=== PATIENT | female | born 1990 | race Caucasian/White ===

== ENCOUNTER 2020-06-30 09:12 | Emergency (ER) | payer OTHER, SELFPAY ==
[2020-06-30 09:28] VITALS: BP 120/81; PULSE 89; RESP 18; TEMP 36.8; O2SAT 99
--- NOTE | 2020-06-30 10:03 | ED.URI ---
HPI - URI/Sore Throat General Chief Complaint: Upper Respiratory Infection Stated Complaint: nasal congestion and sore throat Time Seen by Provider: 06/30/20 09:52 Source: patient and RN notes reviewed Mode of arrival: ambulatory Limitations: no limitations History of Present Illness HPI Narrative: Patient presents today complaining of nasal congestion, frontal headache, sore throat, rhinorrhea since yesterday. States symptoms are improved this morning. Currently rates her pain 4/10. Denies fever, ear pain, shortness of breath. Reports occasional cough due to postnasal drip. No known exposure to COVID-19. She has been taking Mucinex, Tylenol, DayQuil with some mild relief. She has also been using salt water gargles for her sore throat, which did help. MD elicited complaint: sore throat Related Data Home Medications Medication Instructions Recorded Confirmed citalopram 10 mg PO DAILY 06/30/20 06/30/20 Allergies Allergy/AdvReac Type Severity Reaction Status Date / Time No Known Allergies Allergy Verified 06/30/20 09:36 Review of Systems Review of Systems: Narrative: CONSTITUTIONAL: Denies body aches, fever, chills, or sweats. EYES: Denies visual changes, redness, or discharge. ENT: Denies otalgia.+Congestion, rhinorrhea, sore throat, postnasal drip CARDIOVASCULAR: Denies chest pain, palpitations, or edema. RESPIRATORY: Denies cough or dyspnea. GASTROINTESTINAL: Denies abdominal pain, nausea, vomiting, or diarrhea. GENITOURINARY: Denies dysuria or hematuria. SKIN: Denies rash, itching, or wounds. MUSCULOSKELETAL: Denies back pain, joint pain, or myalgia. NEUROLOGIC: Denies numbness, tingling, or weakness. +Frontal headache PSYCH: Denies depression or anxiety. [facility] Past Medical History Medical History (Updated 06/30/20 @ 10:08 by Michelle Anderson, MILIEU TECHNICIAN, ) Anxiety Depression Exam Narrative: Exam Narrative: GENERAL: Mildly ill-appearing, well-nourished, and in no acute distress. HEAD: Normocephalic, atraumatic. EYES: EOMI. No redness or drainage. Conjunctivae normal. ENT: Mucous membranes pink and moist. Nares Congested with rhinorrhea. TMs normal bilaterally. Throat normal. Uvula midline. NECK: Normal AROM. Supple. No lymphadenopathy. CHEST: No respiratory distress. Clear to auscultation. HEART: Regular rate and rhythm. No murmur appreciated. Normal peripheral pulses. EXTREMITIES: Normal range of motion. No edema. SKIN: Warm, dry, no rash. Capillary refill normal. Normal skin turgor. NEURO: No focal deficits. Alert and oriented x3. Gait steady. PSYCH: Normal affect. No signs of depression or anxiety. Course Course Emergency Course: Due to recent exposure and symptoms, patient may have a possible COVID-19 infection. Signs and symptoms discussed with patient. Patient educated to self-isolate in a room in his/her home away from others they live with. Use mask if available. Patient was advised not to leave house for any reason ? Self-treatment discussed including Tylenol for fever, pain, or myalgia, and cough cold medications for symptoms. Patient to check temperature daily and monitor for symptoms of respiratory distress. Patient should check in daily with primary care office/system via phone/virtual platform ? Nature of the disease to cause severe respiratory distress discussed with the patient. If emergent care is needed, instructed to notify EMS or primary care office/system that he/she may have COVID-19 to allow for proper preparation of PPE and isolation measures Vital Signs Vital signs: Vital Signs Temperature 98.2 F 06/30/20 09:28 Pulse Rate 89 06/30/20 09:28 Respiratory Rate 18 06/30/20 09:28 Blood Pressure 120/81 06/30/20 09:28 Pulse Oximetry 99 06/30/20 09:28 Temperature 98.2 F 06/30/20 09:28 Pulse Rate 89 06/30/20 09:28 Respiratory Rate 18 06/30/20 09:28 Blood Pressure 120/81 06/30/20 09:28 Pulse Oximetry 99 06/30/20 09:28 Review
== END 2020-06-30 10:13 | disposition home or self-care (01) ==
PROVIDERS: Emergency Provider Nurse Practitioner; PCP Nurse Practitioner Adult Health
DX: J06.9 Acute upper respiratory infection, unspecified (principal); Z20.828 Contact with and (suspected) exposure to other viral communicable diseases; F41.9 Anxiety disorder, unspecified; F32.9 Major depressive disorder, single episode, unspecified
CPT/HCPCS: 87081; 87880; 99213; G0463

== ENCOUNTER 2020-06-30 10:14 | Outpatient (NON) | payer OTHER, SELFPAY ==
[2020-06-30 23:03] LABS: SARS-CoV-2 RNA PCR Negative
== END 2020-06-30 10:15 ==
LOC: ANHCOVIDDT 10:16
PROVIDERS: PCP Nurse Practitioner Adult Health; Visit Provider Nurse Practitioner
DX: Z20.828 Contact with and (suspected) exposure to other viral communicable diseases (principal); J06.9 Acute upper respiratory infection, unspecified
CPT/HCPCS: 87635; C9803; U0003

== ENCOUNTER 2020-08-24 08:39 | Emergency (ER) | payer OTHER, SELFPAY ==
[2020-08-24 08:47] VITALS: BP 123/76; PULSE 93; RESP 16; TEMP 36.6; O2SAT 100
--- NOTE | 2020-08-24 08:49 | ED.GENADULT ---
HPI - General Adult General Chief complaint: Skin/Abscess/Foreign Body Stated complaint: Bug Bite Time Seen by Provider: 08/24/20 08:50 Source: patient Mode of arrival: ambulatory Limitations: no limitations History of Present Illness HPI narrative: 29-year-old female patient presents to the [facility] with complaints of a rash to bilateral upper arms back area. Patient states that the areas she first noticed yesterday and states they are more itchy when sleeping at night. Patient states that her recently traveled and stated no tell room and came home with a similar rash that is also itching. Patient denies any fevers, body aches or chills. Denies any pets, new detergents, lotions or soaps. Denies any chest pain or shortness of breath. Related Data Home Medications Medication Instructions Recorded Confirmed escitalopram oxalate 10 mg PO DAILY 08/24/20 08/24/20 phentermine 37.5 mg PO DAILY 08/24/20 08/24/20 Allergies Allergy/AdvReac Type Severity Reaction Status Date / Time No Known Allergies Allergy Verified 08/24/20 09:02 Review of Systems Review of Systems: Narrative: CONSTITUTIONAL: Denies fever, chills, or sweats. EYES: Denies visual changes, redness, or discharge. ENT: Denies rhinorrhea, congestion, sore throat, or otalgia. CARDIOVASCULAR: Denies chest pain, palpitations, or edema. RESPIRATORY: Denies cough or dyspnea. GASTROINTESTINAL: Denies abdominal pain, nausea, vomiting, or diarrhea. GENITOURINARY: Denies dysuria or hematuria. SKIN: Positive for rash with itching to bilateral upper arms and back MUSCULOSKELETAL: Denies back pain, joint pain, or myalgia. NEUROLOGIC: Denies headache, numbness, or weakness. PSYCHIATRIC: Denies anxiety or depression. [facility] Past Medical History Medical History Anxiety Depression Comments At the time of my signature I agree with nursing past medical history, surgical, social, and family history. There is no relevant family history pertinent to the presenting complaint. Exam Narrative: Exam Narrative: GENERAL: Well-appearing, well-nourished, and in no acute distress. HEAD: Normocephalic, atraumatic. EYES: PERRLA and EOMI. ENT: Nares clear, no rhinorrhea or epistaxis. Mucous membranes moist. NECK: Supple. No lymphadenopathy CHEST: Clear to auscultation. No respiratory distress. HEART: Regular rate and rhythm. No murmur heard. Normal peripheral pulses. ABDOMEN: Soft, nontender, nondistended, normal active bowel sounds. EXTREMITIES: Normal range of motion. No edema. SKIN: Warm, dry, patient has small red papules noted to various spots on the bilateral upper arms. Some of the papules have little bit of white pimple-like center other wounds have a scabbed over center. There is itching present. The rash also extends to the back as well as the lower back. This does imitate pattern on which patient states she mostly sleeps either on her back or on her left shoulder. NEURO: No focal deficits. Alert and oriented x3. Course Vital Signs Vital signs: Vital Signs Temperature 36.6 C 08/24/20 08:47 Pulse Rate 93 08/24/20 08:47 Respiratory Rate 16 08/24/20 08:47 Blood Pressure 123/76 08/24/20 08:47 Pulse Oximetry 100 08/24/20 08:47 Temperature 36.6 C 08/24/20 08:47 Pulse Rate 93 08/24/20 08:47 Respiratory Rate 16 08/24/20 08:47 Blood Pressure 123/76 08/24/20 08:47 Pulse Oximetry 100 08/24/20 08:47 Vital signs reviewed Medical Decision Making Differential Diagnosis Differential Diagnosis: Differential diagnosis: Contact dermatitis, poison gerard, poison sumac, psoriasis, eczema, allergic reaction, drug reaction, scabies, tinea syphilis, lung disease, viral exanthema, pityriasis, erythema multiforme. Abscess, cellulitis, hidradenitis, laceration, puncture wound. Discussed with patient that given the rash, especially since her has it as well, could possibly be some type of s
== END 2020-08-24 09:10 | disposition home or self-care (01) ==
PROVIDERS: Emergency Provider Nurse Practitioner Family; PCP Nurse Practitioner Adult Health
DX: S40.862A Insect bite (nonvenomous) of left upper arm, initial encounter (principal); S40.861A Insect bite (nonvenomous) of right upper arm, initial encounter; S20.469A Insect bite (nonvenomous) of unspecified back wall of thorax, initial encounter; S30.860A Insect bite (nonvenomous) of lower back and pelvis, initial encounter; W57.XXXA Bitten or stung by nonvenomous insect and other nonvenomous arthropods, initial encounter; F41.9 Anxiety disorder, unspecified; F32.9 Major depressive disorder, single episode, unspecified
CPT/HCPCS: 99213; G0463

== ENCOUNTER 2021-03-09 11:22 | Emergency (ER) | payer BC, SELFPAY ==
[2021-03-09 11:31] VITALS: BP 109/70; PULSE 57; RESP 18; TEMP 37.6; O2SAT 100
--- NOTE | 2021-03-09 11:49 | ED.FEMALEGU ---
HPI - Female Genitourinary General Chief complaint: Abdominal Pain Stated complaint: ride side lower pain Time Seen by Provider: 03/09/21 11:49 Source: patient (Patient presents with right lower quadrant pain had intermittent intervals) History of Present Illness HPI Narrative: Patient presents with right lower quadrant pain that has been going on for the past 2 to 3 days. Patient denies any fever no nausea no vomiting. Patient denies any urinary symptoms. Patient states the pain comes at random. Patient has a history of ovarian cysts and wonders if that could be her problem at this time Related Data Home Medications Medication Instructions Recorded Confirmed fluoxetine 20 mg PO DAILY 03/09/21 03/09/21 Allergies Allergy/AdvReac Type Severity Reaction Status Date / Time No Known Allergies Allergy Verified 03/09/21 11:57 Review of Systems Review of Systems: CONSTITUTIONAL: Denies fever, chills, or sweats. EYES: Denies visual changes, redness, or discharge. ENT: Denies rhinorrhea, congestion, sore throat, or otalgia. CARDIOVASCULAR: Denies chest pain, palpitations, or edema. RESPIRATORY: Denies cough or dyspnea. GASTROINTESTINAL: Denies abdominal pain, nausea, vomiting, or diarrhea. GENITOURINARY: Denies dysuria or hematuria. SKIN: Denies rash or itching. MUSCULOSKELETAL: Denies back pain, joint pain, or myalgia. NEUROLOGIC: Denies headache, numbness, or weakness. PSYCHIATRIC: Denies anxiety or depression. [facility] Past Medical History Medical History Anxiety Depression Comments At time of signature, agree with nursing past medical, surgical, social and family history. There is no relevant family history pertinent to the presenting complaint Exam Narrative: GENERAL: Well-appearing, well-nourished, and in no acute distress. HEAD: Normocephalic, atraumatic. EYES: PERRLA and EOMI. ENT: Nares clear, no rhinorrhea or epistaxis. Mucous membranes moist. NECK: Supple. CHEST: Clear to auscultation. No respiratory distress. HEART: Regular rate and rhythm. No murmur heard. Normal peripheral pulses. ABDOMEN: Soft, nontender, nondistended, normal active bowel sounds. EXTREMITIES: Normal range of motion. No edema. SKIN: Warm, dry, no rash. NEURO: No focal deficits. Alert and oriented x3. [place] Coma Scale Eye Opening: Spontaneous 4 [place] Coma Scale Motor: Obeys Commands 6 [place] Coma Scale Verbal: Oriented 5 [place] Coma Scale Total 15 Course Vital Signs Vital signs: Vital Signs Temperature 37.6 C H 03/09/21 11:31 Pulse Rate 57 L 03/09/21 11:31 Respiratory Rate 18 03/09/21 11:31 Blood Pressure 109/70 03/09/21 11:31 Pulse Oximetry 100 03/09/21 11:31 Temperature 37.6 C H 03/09/21 11:31 Pulse Rate 57 L 03/09/21 11:31 Respiratory Rate 18 03/09/21 11:31 Blood Pressure 109/70 03/09/21 11:31 Pulse Oximetry 100 03/09/21 11:31 Discussed transfer to emergency room for further evaluation treatment of right lower quadrant pain. Patient declines transfer at this time states she will go home and if her symptoms return or worsen she will go to ER immediately further evaluation treatment. Discussed red flags and when to go to ER. Critical dx considered and discussed with pt. Educated patient on red flag s/s and to go to ED if s/s occur. Discussed with pt when to return to [facility] or primary care provider. Pt gave verbal undertstanding, all questions were answered, and pt was agreeable to plan MDM - Female Genitourinary Differential Diagnosis Differential diagnosis: Likely urinary tract infection, bacterial vaginosis, trichomoniasis, ovarian cyst, cystitis and dysmenorrhea Medical Records Attestation: I reviewed the patient's medical records. Lab Data Attestation: I reviewed the patient's lab results. Labs: Urine Glucose Negative Reference Range: Negative Urine B
== END 2021-03-09 12:15 | disposition home or self-care (01) ==
PROVIDERS: Emergency Provider Nurse Practitioner Family; PCP Nurse Practitioner Adult Health
DX: R10.31 Right lower quadrant pain (principal); F41.9 Anxiety disorder, unspecified; F32.9 Major depressive disorder, single episode, unspecified
CPT/HCPCS: 81003; 99212; G0463

== ENCOUNTER 2021-03-13 11:04 | Emergency (ER) | payer BC, SELFPAY ==
--- NOTE | ~2021-03-13 | CT_ITS ---
EXAMINATION: CT abdomen pelvis w con INDICATION: Right lower quadrant pain TECHNIQUE: Computed tomographic images of the abdomen and pelvis were obtained after the administrati on of 100 cc of Omnipaque 350 intravenous contrast. The dose-length product (DLP) was 244.27 mGy-cm. Automated exposure control and iterative reconstruction technique were employed. COMPARISON: None available FINDINGS: Minimal dependent atelectasis is present in the lung bases. The heart size is normal. The l iver, spleen, pancreas, gallbladder, and adrenal glands are normal. The kidneys are unremarkable. No pathologically enlarged abdominal or pelvic lymph nodes are identified. The appendix is normal. There is a 6.2 cm cyst of the left ovary. There is a possible corpus luteum of the left ovary. A small pavel unt of free fluid is present in the pelvis. There is no free intraperitoneal gas or evidence of bowel obstruction. IMPRESSION: 1. No CT correlate for the patient's symptoms. 2. Cystic lesion of the left adnexa. Further evaluation with pelvic ultrasound is recommended. Reviewed, dictated and finalized at location B.
[2021-03-13 11:19] VITALS: BP 124/67; PULSE 72; RESP 18; TEMP 36.6; O2SAT 100
[2021-03-13 11:40] LABS: Basophils Percent Auto 0.3 % (0.2-1.2); Eosinophils Absolute Auto 0.1 K/mm3 (0-0.3); Eosinophils Percent Auto 1.3 % (0-4.4); Hematocrit 37.1 % (37.0-47.0); Immature Granulocyte Absolute 0.02 K/mm3 (0.00-0.031); Immature Granulocyte Percent A 0.2 % (0-0.5); Lymphocytes Absolute Auto 1.95 K/mm3 (0.9-3.2); Lymphocytes Percent Auto 22.2 % (18.3-44.2); Mean Corpuscular HGB Conc 32.3 g/dl (32-36); Mean Corpuscular Hemoglobin 27.5 pg (26-34); Mean Corpuscular Volume 84.9 fl (80-100); Mean Platelet Volume 9.7 fl (7.4-10.4); Monocytes Absolute Auto 0.5 K/mm3 (0.1-0.6); Monocytes Percent Auto 5.9 % (2.6-8.5); Neutrophils Absolute Auto 6.2 K/mm3 (1.3-6.7); Neutrophils Percent Auto 70.1 % (45.5-73.1); Platelet Count Result 234 k/mm3 (150-375); Red Blood Count 4.37 M/mm3 (4.2-5.4); Red Cell Distribution Width 13.6 % (11.5-14.5); White Blood Count 8.8 K/mm3 (4.5-10.0)
[2021-03-13 11:48] LABS: Alanine Aminotransferase 15 U/L (4-35); Albumin Level 4.4 g/dL (3.5-5.1); Alkaline Phosphatase 49 U/L (38-126); Anion Gap 8 mmol/L (8-16); Aspartate Amino Transferase 23 U/L (14-36); Bilirubin,Total 0.3 mg/dL (0.2-1.3); Blood Urea Nitrogen 14 mg/dL (7-17); Calcium 9.3 mg/dL (8.4-10.2); Carbon Dioxide 23 mmol/L (22-30); Chloride 108 mmol/L (98-107); Estimated CRCL calculation 80 ml/min; Estimated Glomerular Filt Rate > 60; Glucose 92 mg/dL (65-110); Lipase 97 U/L (23-300); Potassium 3.8 mmol/L (3.4-5.0); Sodium 139 mmol/L (137-145)
[2021-03-13 12:02] LABS: Add Urine Microscopic? NO; Appearance Urine Clear (Clear); Bilirubin Urine Negative (Negative); Blood Urine Negative (Negative); Color Urine Yellow (Yellow); Glucose Urine UA Negative (Negative); Ketones Urine Negative (Negative); Leukocyte Esterase Ur Negative LEU/UL (Negative); Nitrate Urine Negative (Negative); Protein Urine Negative (Negative); Specific Grav Ur 1.024 (1.001-1.035); Urobilinogen Urine Negative mg/dL (<2.0)
[2021-03-13 12:23] VITALS: BP 113/71; PULSE 67; RESP 16; O2SAT 100
--- NOTE | 2021-03-13 13:56 | ED.ABDPAIN ---
HPI - Abdominal Pain General Chief Complaint: Abdominal Pain Stated Complaint: abd pain Time Seen by Provider: 03/13/21 12:02 Source: patient Mode of arrival: ambulatory Limitations: no limitations History of Present Illness HPI narrative: 30-year-old with no major medical problems here with complaints of right lower abdominal pain for approximately 1 week. Patient states that she has been to urgent care approximately 5 or 6 days ago had a urine analysis and was told normal however they could not do any further work-up and was told to go to the ER. Patient states that he has been having constant pain for past 5 days she denies any fever or chills. No history of nausea or vomiting. Denies any bladder or bowel problems. MD elicited complaint: abdominal pain Pertinent past history: none Pain Consistency: constant Location: RLQ Quality: aching Migration to: no migration Exacerbating factors: nothing Relieving factors: nothing Related Data Hx Last Menstrual Period: 2 weeks ago Home Medications Medication Instructions Recorded Confirmed fluoxetine 20 mg PO DAILY 03/09/21 03/09/21 Allergies Allergy/AdvReac Type Severity Reaction Status Date / Time No Known Allergies Allergy Verified 03/13/21 12:23 Review of Systems Review of Systems: All systems reviewed & are unremarkable except as noted in HPI and below Constitutional: Constitutional: Reports no additional constitutional complaints Eyes: Eyes: Reports no additional eye complaints Cardiovascular: Cardiovascular: Reports no additional cardiovascular complaints Respiratory: Respiratory: Reports no additional respiratory complaints Gastrointestinal: Gastrointestinal: Reports as per HPI Musculoskeletal: Musculoskeletal: Reports no additional musculoskeletal complaints Integumentary/Breasts: Skin/Breast: Reports system reviewed and no additional complaints, except as docu Neurologic: Reports system reviewed and no additional complaints, except as documented Endocrine: Endocrine: Reports no additional endocrine complaints [facility] Past Medical History Medical History Anxiety Depression Exam Narrative: GENERAL: Well-appearing, well-nourished, and in no acute distress. HEAD: Normocephalic, atraumatic. EYES: PERRLA and EOMI.. NECK: Supple. CHEST: Clear to auscultation. No respiratory distress. HEART: Regular rate and rhythm. No murmur heard. Normal peripheral pulses. ABDOMEN: Soft, mild tenderness in the rlq, nondistended, normal active bowel sounds. EXTREMITIES: Normal range of motion. No edema. SKIN: Warm, dry, no rash. NEURO: No focal deficits. Alert and oriented x3. PSYCH: Normal mood and affect. Course Course Emergency Course: Patient is seem to be quite comfortable not much in pain. I did discuss her about her lab work, CT findings. Cause of her pain is unknown. Advised her to take ibuprofen for pain. If continues to have pain, follow-up with primary doctor. Vital Signs Vital signs: Vital Signs Temperature 36.6 C 03/13/21 11:19 Pulse Rate 72 03/13/21 11:19 Respiratory Rate 18 03/13/21 11:19 Blood Pressure 124/67 03/13/21 11:19 Pulse Oximetry 100 03/13/21 11:19 Temperature 36.6 C 03/13/21 11:19 Pulse Rate 67 03/13/21 12:23 Respiratory Rate 16 03/13/21 12:23 Blood Pressure 113/71 03/13/21 12:23 Pulse Oximetry 100 03/13/21 12:23 MDM - Abdominal Pain Lab Data Result diagrams: 03/13/21 11:28 03/13/21 11:28 Labs: Lab Results 03/13/21 03/13/21 03/13/21 Range/Units 11:28 11:28 11:38 WBC 8.8 (4.5-10.0) K/mm3 RBC 4.37 (4.2-5.4) M/mm3 Hgb 12.0 (12.0-15.0) g/dL Hct 37.1 (37.0-47.0) % MCV 84.9 (80-100) fl MCH 27.5 (26-34) pg MCHC 32.3 (32-36) g/dl RDW 13.6 (11.5-14.5) % Plt Count 234 (150-375) k/mm3 MPV 9.7 (7.4-10.4) fl Immature Gran % (Auto) 0.2 (0-0.5) % Ne
[2021-03-13 14:20] VITALS: BP 102/58; PULSE 66; RESP 18; O2SAT 100
== END 2021-03-13 14:25 | disposition home or self-care (01) ==
PROVIDERS: Emergency Medicine; Emergency Provider Family Medicine; PCP Nurse Practitioner Adult Health
DX: R10.31 Right lower quadrant pain (principal); F41.9 Anxiety disorder, unspecified; F32.9 Major depressive disorder, single episode, unspecified; N83.202 Unspecified ovarian cyst, left side
CPT/HCPCS: 36415; 74177; 80053; 81003; 83690; 85025; 99284; Q9967